=== PATIENT | female | born 1950 | race Caucasian/White ===

== ENCOUNTER 2019-09-28 01:43 | Emergency (ER) | payer MEDICARE, OTHER ==
[2019-09-28] MEDS ORDERED: Ondansetron 4 MG/2 ML SDV IV ONE (02:22)
[2019-09-28] MEDS ORDERED: Sodium Chloride 0.9% 10 ML Syringe FLUSH PRN (02:22)
[2019-09-28] MEDS ORDERED: HYDROmorphone 1 MG/ML Syringe IVPUSH ONE (02:22)
--- NOTE | 2019-09-28 02:31 | EDM.PDOC ---
ED HPI GENERAL MEDICAL PROBLEM - General Chief Complaint: Abdominal Pain Stated Complaint: ABDOMINAL PAIN Time Seen by Provider: 09/28/19 02:10 Source of Information: Reports: Patient History Limitations: Reports: No Limitations - History of Present Illness INITIAL COMMENTS - FREE TEXT/NARRATIVE: Patient comes emergency department today with complaints of epigastric abdominal pain. The patient has struggled for the past couple of weeks with increasing acid indigestion complaints where Tums and omeprazole has been working. Although today she drove up from [facility] to [facility] and had dinner with her sister dwayne that included BLTs at 1900 hrs. tonsuzanna and the pain has been unrelenting and constant since that time. She tried her Tums and omeprazole that has been working the past couple of weeks but it has not change the pain. Pain is in the epigastric right upper quadrant region of the abdomen. It feels like a band sensation around her abdomen. She feels bloated and distended. She did have diarrhea this morning although she relates that is not uncommon for her. No other abdominal pain. No previous surgeries on her abdomen. No hematuria dysuria or urinary frequency. Nothing makes the pain worse or better. It has been unrelenting and constant since about 7:00 tonight. She has also been struggling with heartburn on and off for the past 2 weeks that has been resolved with TUms and omeprazole. No other chest pain palpitations and the heartburn happens primarily when she goes to bed at night and lays down. Epigastric Pain Score (Numeric/FACES): 8 - Related Data Allergies Allergy/AdvReac Type Severity Reaction Status Date / Time No Known Allergies Allergy Verified 09/28/19 01:44 Home Meds: Home Meds . [No Known Home Meds] 09/28/19 [History] Past Medical History Cardiovascular History: Reports: High Cholesterol Neurological History: Reports: Migraines, Neuropathy, Peripheral Social & Family History - Tobacco Use Smoking Status *Q: Former Smoker Used Tobacco, but Quit: Yes Month/Year Tobacco Last Used: 1989 ED ROS GENERAL - Review of Systems Review Of Systems: Comprehensive ROS is negative, except as noted in HPI. ED EXAM, GI/ABD - Physical Exam Exam: See Below Exam Limited By: No Limitations General Appearance: Alert, WD/WN, No Apparent Distress Eyes: Bilateral: EOMI Ears: Normal External Exam, Normal TMs Nose: Normal Inspection Throat/Mouth: Normal Inspection, Normal Lips, Normal Oropharynx, Normal Voice Head: Atraumatic, Normocephalic Neck: Normal Inspection, Supple, Non-Tender Respiratory/Chest: No Respiratory Distress, Lungs Clear, Normal Breath Sounds, No Accessory Muscle Use, Chest Non-Tender Cardiovascular: Normal Peripheral Pulses, Regular Rate, Rhythm GI/Abdominal Exam: Soft, No Organomegaly, Distended, Rebound (RUQ with a positive murphys sign. ), Tender, Abnormal Bowel Sounds (Quite decreased bowel sounds. ). No: Guarding, Rigid (Female) Exam: Deferred Rectal (Female) Exam: Deferred Back Exam: Normal Inspection, Full Range of Motion. No: CVA Tenderness (L), CVA Tenderness (R) Extremities: Normal Inspection, Normal Range of Motion Neurological: Alert, Oriented, Normal Cognition, No Motor/Sensory Deficits Psychiatric: Normal Affect, Normal Mood Skin Exam: Warm, Dry, Intact, Normal Color, No Rash Course - Vital Signs Last Recorded V/S: Last Vital Signs Temp 36.5 C 09/28/19 03:45 Pulse 80 09/28/19 03:45 Resp 16 09/28/19 03:45 BP 150/69 H 09/28/19 03:45 Pulse Ox 96 09/28/19 03:45 - Orders/Labs/Meds Orders: Active Orders 24 hr Category Date Time Status Abdomen Pelvis w Cont [CT] Stat Exams 09/28/19 02:48 Taken CULTURE URINE [RM] Stat Lab 09/28/19 05:12 Ordered UA RFX OFE AND CULT IF INDIC [URIN] Stat Lab 09/28/19 03:23 Ordered Peripheral IV Insertion Adult [OM.PC] Stat Oth 09/28/19 02:22 Ordered Labs: Laboratory Tests 09/28/19 09/28/19 09/28/19 Range/Units 02:36 02:36 03:23 WBC 6.5 (4.0-10.0) x10^3/uL RBC 4.72 (4.00-5.50) x10^6/uL Hgb 14.3 (12.0-16.0) g/dL Hct 43.4 (33.0-47.0) % MCV 91.9 (78.0-93.0) fL MCH 30.3 (26.0-32.0) pg MCHC 32.9 (32.0-36.0) g/dL RDW Coeff of Tenzin 13.9 (10.0-15.0) % Plt Count 148 (130-400) x10^3/uL Neut % (Auto) 46.2 L (50.0-80.0) % Lymph % (Auto) 39.2 (25.0-50.0) % Kerr % (Auto) 10.3 (2.0-11.0) % Eos % (Auto) 3.4 (0.0-4.0) % Baso % (Auto) 0.9 (0.2-1.2) % Sodium 142 (136-145) mmol/L Potassium 4.1 (3.5-5.1) mmol/L Chloride 106 (98-107) mmol/L Carbon Dioxide 23 (21-32) mmol/L Anion Gap 17.1 (10-20) mmol/L BUN 22 H (7-18) mg/dL Creatinine 1.0 (0.55-1.02) mg/dL Est Cr Clr Drug Dosing 51.10 mL/min Estimated GFR (MDRD) 55 Glucose 114 H (74-106) mg/dL Calcium 9.2 (8.5-10.1) mg/dL Corrected Calcium 9.44 (8.5-10.1) mg/dL Total Bilirubin 0.2 (0.2-1.0) mg/dL AST 18 (15-37) U/L ALT 30 (14-59) U/L Alkaline Phosphatase 107 (46-116) U/L C-Reactive Protein < 0.2 (<=0.9) mg/dL Total Protein 7.5 (6.4-8.2) g/dL Albumin 3.7 (3.4-5.0) g/dL Globulin 3.8 Albumin/Globulin Ratio 0.97 Lipase 199 (73-393) U/L Urine Color Yellow (YELLOW) POC Urine Appearance Slightly cloudy H (CLEAR) POC Urine pH 6.0 (5.0-8.0) Ur Specific [place] 1.030 (1.005-1.030) POC Urine Protein Trace H (NEGATIVE) POC Ur Glucose (UA) Negative (NEGATIVE) POC Urine Ketones Negative (NEGATIVE) POC Ur Occult Blood Trace H (NEGATIVE) POC Urine Nitrite Negative (NEGATIVE) POC Urine Bilirubin Small H (NEGATIVE) POC Urine Urobilinogen 0.2 (0.2) POC U Leukocyte Esteras Small H (NEGATIVE) Meds: Medications Discontinued Medications Generic Name Dose Route Start Last Admin Trade Name Eliza PRN Reason Stop Dose Admin Al Hydroxide/Mg Hydroxide 30 ml 09/28/19 05:38 09/28/19 05:41 Gi Cocktail PO 09/28/19 05:39 30 ml ONETIME ONE Administration Hydromorphone HCl 0.5 mg 09/28/19 02:22 09/28/19 02:29 Dilaudid IVPUSH 09/28/19 02:23 0.5 mg ONETIME ONE Administration Iopamidol 100 ml 09/28/19 03:43 09/28/19 03:44 Isovue-300 (61%) IVPUSH 09/28/19 03:44 100 ml ONETIME ONE Administration Ondansetron HCl 4 mg 09/28/19 02:22 09/28/19 02:29 Zofran IV 09/28/19 02:23 4 mg ONETIME ONE Administration Sodium Chloride 10 ml 09/28/19 02:22 09/28/19 02:47 Saline Flush FLUSH 10 ml ASDIRECTED PRN Administration Keep Vein Open Tramadol HCl 1 packet 09/28/19 05:37 09/28/19 05:41 Take Home: Tramadol 50 Mg, 4 Tab Pack PO 09/28/19 05:38 1 packet ONETIME ONE Administration - Re-Assessments/Exams Free Text/Narrative Re-Assessment/Exam: 09/28/19 02:31 IV NS Lock Ondansetron 4mg IVP Dilaudid 0.5mg IVP 09/28/19 06:29 Her pain was completely resolved above therapy. She rested and comfortably over the next hour or so. Her CT scan shows no acute pathology in the abdomen but noted some hepatomegaly. Her labs are really unremarkable. Will culture urine no urinary symptoms. Explained the results of the CT scan and the lab to the patient. She really is a presentation and to pathologies. Biliary colic as well as GERD. We will start her on Carafate for the next 28 days and have her take her omeprazole daily instead of as needed. I also suggest that she gets endoscopy since she has had recurrent GERD for many years that has been out of control for many of years and never had a endoscopy. Really have concerns that her different pain tonight and her ingestion is biliary colic. There is no CT signs of acute cholecystitis. Her white count is normal and her liver enzymes are normal as well and her pain is resolved with the Dilaudid. I will send her home with tramadol for pain per her request she refuses hydrocodone. Low-fat diet for her gallbladder disease as well as follow-up with primary care to get an ultrasound to see if there is cholelithiasis or other concerns. She is comfortable with this plan and her questions are answered. Departure - Departure Time of Disposition: 05:39 Disposition: Home, Self-Care 01 Clinical Impression: Biliary colic GERD (gastroesophageal reflux disease) Qualifiers: Esophagitis presence: esophagitis presence not specified Qualified Code(s): K21.9 - Gastro-esophageal reflux disease without esophagitis - Discharge Information Instructions: Heartburn, [id number], Cholelithiasis, [id number], Biliary Colic, Adult, Gallbladder Eating Plan Referrals: PCP,None [Primary Care Provider] - Forms: ED Department Discharge Additional Instructions: For the acute episodes of heartburn use OTC Maalox or Mylanta instead of TUMs. Take the omeprazole 1 tablet daily for the next 28 days. Start Carafate 1 tablet 4 times a day. 1/2 hr before meals and bedtime for the next 28 days. RX given to the patient. Talk with your PCP about an upper endoscopy to look at your esophagus and also your stomach due to the recurrent indigestion. For the gallbladder. Also talk with your PCP about an US of the gallbladder when you get back home to [place]. Low fat diet to prevent gallbladder pain see discharge instructions. Tylenol and or Ibuprofen as needed for pain. IF pain not controlled with above Tramadol 1 tablet every 6 hrs as needed for pain. Caution sedation. RX given to the patient. Return to the ED if new or worsening symptoms. Sepsis Event Note - Evaluation Sepsis Screening Result: No Definite Risk - Focused Exam Vital Signs: Vital Signs Temp Pulse Resp BP Pulse Ox 09/28/19 03:45 36.5 C 80 16 150/69 H 96 09/28/19 01:45 36.3 C 94 16 166/62 H 96 Date Exam was Performed: 09/28/19 Time Exam was Performed: 06:29 - My Orders Last 24 Hours: My Active Orders 09/28/19 02:22 Peripheral IV Insertion Adult [OM.PC] Stat 09/28/19 02:48 Abdomen Pelvis w Cont [CT] Stat 09/28/19 03:23 UA RFX OFE AND CULT IF INDIC [URIN] Stat 09/28/19 05:12 CULTURE URINE [RM] Stat - Assessment/Plan Last 24 Hours: My Active Orders 09/28/19 02:22 Peripheral IV Insertion Adult [OM.PC] Stat 09/28/19 02:48 Abdomen Pelvis w Cont [CT] Stat 09/28/19 03:23 UA RFX OFE AND CULT IF INDIC [URIN] Stat 09/28/19 05:12 CULTURE URINE [RM] Stat Assessment:: Biliary Colic GERD Plan: For the acute episodes of heartburn use OTC Maalox or Mylanta instead of TUMs. Take the omeprazole 1 tablet daily for the next 28 days. Start Carafate 1 tablet 4 times a day. 1/2 hr before meals and bedtime for the next 28 days. RX given to the patient. Talk with your PCP about an upper endoscopy to look at your esophagus and also your stomach due to the recurrent indigestion. For the gallbladder. Also talk with your PCP about an US of the gallbladder when you get back home to [place]. Low fat diet to prevent gallbladder pain see discharge instructions. Tylenol and or Ibuprofen as needed for pain. IF pain not controlled with above Tramadol 1 tablet every 6 hrs as needed for pain. Caution sedation. RX given to the patient. Return to the ED if new or worsening symptoms.
[2019-09-28 03:03] LABS: CHLORIDE,CL 106 mmol/L (98-107); SODIUM,NA 142 mmol/L (136-145)
[2019-09-28 03:04] LABS: ANION GAP 17.1 mmol/L (10-20)
[2019-09-28] MEDS ORDERED: Iopamidol 612 MG/ML 100 ML Bottle IVPUSH ONE (03:43)
[2019-09-28] MEDS ORDERED: Take Home: traMADol 50 MG, 4 Tab Pack PO ONE (05:37)
[2019-09-28] MEDS ORDERED: GI Cocktail Oral Solution 30 ML PO ONE (05:38)
--- NOTE | 2019-09-28 09:09 | CT ---
[id number] CT/CT Abdomen Pelvis W IV EXAM: ABDOMEN AND PELVIS CT WITH CONTRAST INDICATION: EPIGASTRIC RIGHT UPPER QUADRANT PAIN. COMPARISON: None. DISCUSSION: The liver is mild to moderately enlarged and may have mild steatosis. No focal liver lesion or intrahepatic duct dilation is seen. Small fat-containing umbilical hernia. Subcentimeter left renal cyst. Small fat-containing bilateral inguinal hernias. A 6 mm sclerotic focus in the left pubic body likely represents a bone island. Dural ectasia in the upper sacrum. Multiple Schmorl's nodes in the spine. The adrenal glands, spleen, pancreas, right kidney, small bowel, appendix and large bowel are unremarkable. No adenopathy, free air free fluid. IMPRESSION: 1. No acute findings. 2. The liver is enlarged and demonstrates possible mild steatosis. Camilo Singh MD 09/28/19 0908 Thank you for allowing us to participate in the care of your patient.
[2019-09-29] MEDS ORDERED: Take Home: Cephalexin 500 MG Cap, 4 Cap Pack PO ONE (20:29)
== END 2019-09-28 05:49 | disposition home or self-care (01) ==
LOC: VM.ED 01:43
DX: K21.9 Gastro-esophageal reflux disease without esophagitis (principal); K80.50 Calculus of bile duct without cholangitis or cholecystitis without obstruction; G62.9 Polyneuropathy, unspecified; Z87.891 Personal history of nicotine dependence
CPT/HCPCS: 36415; 74177; 80053; 81001; 81002; 83690; 85025; 86140; 87086; 87088; 87186; 96374; 96375; 99284; A9270; J1170; J2405; Q9967